=== PATIENT | male | born 1955 | race Caucasian/White ===

== ENCOUNTER 2017-08-02 22:02 | Emergency (ER) | payer MEDICAID ==
[~2017-08-02] VITALS: Ht 160 cm; Wt 68.0 kg
--- NOTE | 2017-08-02 22:02 | NUR ---
ARGENIS C/O RIGHT EYE DRESSNES SINCE THIS MORNING. NO SOB. NO PAIN. A/OX4 ABLE TO MAKE NEEDS KNONW. VSS NAD. WILL CONTINUE TO MONITOR FOR ANY CHANGES
--- NOTE | 2017-08-02 23:00 | NUR ---
EYE TEST DONE BY CLINICAL DATA ANALYST
--- NOTE | 2017-08-02 23:49 | NUR ---
AWAITING RESULTS ON RAPID INFLUENZA
[2017-08-03 00:35] VITALS: BP 140/80
== END 2017-08-03 00:35 | disposition home or self-care (01) ==
LOC: ER 22:13
DX: H11.31 Conjunctival hemorrhage, right eye (principal); R05 Cough; E11.9 Type 2 diabetes mellitus without complications; Z60.2 Problems related to living alone
CPT/HCPCS: 87804 ×2; 99284; A4606; Z7610; 87400

== ENCOUNTER 2021-09-28 03:10 | Emergency (ER) | payer MEDICARE, OTHER ==
[~2021-09-28] VITALS: Ht 160 cm; Wt 81.6 kg
[2021-09-28 04:09] VITALS: BP 130/78
[2021-09-28] MEDS ORDERED: FLUORESCEIN SODIUM OPHTH 1 EA STRIP ONE (04:16)
[2021-09-28] MEDS ORDERED: CIPR2.5D14 RIGHTEYE (04:21)
--- NOTE | 2021-09-28 04:27 | NUR ---
Patient discharged to home in stable condition. Written and verbal after care instructions given. Patient verbalizes understanding of instruction.
== END 2021-09-28 04:28 | disposition home or self-care (01) ==
LOC: ER 03:20
DX: S05.01XA Injury of conjunctiva and corneal abrasion without foreign body, right eye, initial encounter (principal); E11.9 Type 2 diabetes mellitus without complications; Z60.2 Problems related to living alone; Z79.899 Other long term (current) drug therapy; X58.XXXA Exposure to other specified factors, initial encounter; Y93.89 Activity, other specified; Y92.89 Other specified places as the place of occurrence of the external cause; Y99.8 Other external cause status

== ENCOUNTER → 2023-07-21 | Emergency (ER) | payer MEDICARE, OTHER ==
[~2023-07-21] VITALS: Ht 162.6 cm; Wt 68.0 kg
[~2023-07-21] MED LIST: AMOX500C2 PO; AMOXICILLIN TRIHYDRATE 250 MG CAPSULE ONE; CIPR2.5D14 RIGHTEYE; IBUP-1955 PO; IBUPROFEN 600 MG TABLET ONE
[2023-07-22 00:11] VITALS: BP 143/77; TEMP 97.8; O2SAT 100
[2023-07-22] MEDS: IBUPROFEN 600 MG TABLET PO ONE (00:33)
[2023-07-22] MEDS: AMOXICILLIN TRIHYDRATE 500 MG CAPSULE PO ONE (00:33)
== END | disposition home or self-care (01) ==
LOC: ER 23:44
DX: K08.89 Other specified disorders of teeth and supporting structures (principal); E11.9 Type 2 diabetes mellitus without complications; Z60.2 Problems related to living alone

== ENCOUNTER 2023-09-12 02:43 | Emergency (ER) | payer MEDICARE, OTHER ==
[~2023-09-12] VITALS: Ht 165.1 cm; Wt 68.0 kg
[2023-09-12] MEDS: FLUORESCEIN SODIUM OPHTH 1 EA STRIP OP ONE (02:30)
[~2023-09-12 02:43] MED LIST changes: -AMOXICILLIN TRIHYDRATE 250 MG CAPSULE ONE; -IBUPROFEN 600 MG TABLET ONE
[2023-09-12] MEDS: TETRAcaine 5 ML BOTTLE OP ONE (03:00)
[2023-09-12 03:03] VITALS: BP 130/70; TEMP 97.8; O2SAT 100
[2023-09-12] MEDS ORDERED: FLUORESCEIN SODIUM OPHTH 1 EA STRIP ONE (03:04)
[2023-09-12] MEDS ORDERED: CIPR2.5D14 EACHEYE (03:15)
[2023-09-12] MEDS ORDERED: AMOX875T2 PO (03:15)
== END 2023-09-12 03:48 | disposition home or self-care (01) ==
LOC: ER 02:46
DX: S05.02XA Injury of conjunctiva and corneal abrasion without foreign body, left eye, initial encounter (principal); S05.01XA Injury of conjunctiva and corneal abrasion without foreign body, right eye, initial encounter; K02.9 Dental caries, unspecified; Z60.2 Problems related to living alone; Z79.899 Other long term (current) drug therapy; X58.XXXA Exposure to other specified factors, initial encounter; Y93.89 Activity, other specified; Y92.89 Other specified places as the place of occurrence of the external cause; Y99.8 Other external cause status

== ENCOUNTER 2023-10-01 15:35 | Emergency (ER) | payer MEDICARE, OTHER ==
[~2023-10-01] VITALS: Ht 165.1 cm; Wt 68.5 kg
[~2023-10-01 15:35] MED LIST changes: +AMOX875T2 PO; +CIPR2.5D14 EACHEYE
[2023-10-01 15:57] VITALS: BP 126/69; TEMP 98.6; O2SAT 99
[2023-10-01] MEDS ORDERED: SULF1TAB48 PO (16:10)
[2023-10-01] MEDS ORDERED: CEPH500T PO (17:52)
== END 2023-10-01 16:35 | disposition home or self-care (01) ==
LOC: ER 15:42
DX: L03.811 Cellulitis of head [any part, except face] (principal); E11.9 Type 2 diabetes mellitus without complications

== ENCOUNTER 2023-11-30 23:28 | Emergency (ER) | payer MEDICARE, OTHER ==
[~2023-11-30] VITALS: Ht 162.6 cm; Wt 68.0 kg
[~2023-11-30 23:28] MED LIST changes: +CEPH500T PO
[2023-12-01] MEDS: GLUCAGON,HUMAN RECOMBINANT 1 MG/VIAL VIAL IM ONE (00:30)
[2023-12-01] MEDS ORDERED: GLUCAGON,HUMAN RECOMBINANT 1 MG/VIAL VIAL ONE (00:32)
[2023-12-01] MEDS ORDERED: WATER FOR INJECTION,STERILE 10 ML ONE (00:32)
[2023-12-01] MEDS ORDERED: CLIN75SO8 PO (01:51)
[2023-12-01] MEDS ORDERED: PANT20TA2 PO (01:51)
[2023-12-01 01:55] VITALS: BP 152/99; TEMP 98; O2SAT 99
== END 2023-12-01 01:56 | disposition home or self-care (01) ==
LOC: ER 23:55
DX: K20.90 Esophagitis, unspecified without bleeding (principal); E11.9 Type 2 diabetes mellitus without complications; Z60.2 Problems related to living alone
CPT/HCPCS: 99284; 70490; J1610

== ENCOUNTER 2023-12-26 11:56 | Emergency (ER) | payer MEDICARE, OTHER ==
[~2023-12-26] VITALS: Ht 162.6 cm; Wt 68.0 kg
[~2023-12-26 11:56] MED LIST changes: +CLIN75SO8 PO; +PANT20TA2 PO
[2023-12-26] MEDS ORDERED: BENZ-13 PO (15:08)
[2023-12-26] MEDS ORDERED: GUAI1TBM19 PO (15:08)
[2023-12-26 15:19] VITALS: BP 115/72; TEMP 98.6; O2SAT 96
== END 2023-12-26 15:19 | disposition home or self-care (01) ==
LOC: ER 13:45
DX: J06.9 Acute upper respiratory infection, unspecified (principal); R05.9 Cough, unspecified; E11.9 Type 2 diabetes mellitus without complications; Z79.1 Long term (current) use of non-steroidal anti-inflammatories (NSAID); Z79.899 Other long term (current) drug therapy; Z60.2 Problems related to living alone
CPT/HCPCS: 71045-TC

== ENCOUNTER 2024-01-01 01:48 | Emergency (ER) | payer MEDICARE, OTHER ==
[~2024-01-01] VITALS: Ht 162.6 cm; Wt 68.0 kg
[~2024-01-01 01:48] MED LIST changes: +BENZ-13 PO; +GUAI1TBM19 PO
[2024-01-01 03:25] VITALS: BP 122/74; TEMP 98.1
[2024-01-01] MEDS ORDERED: AMOX-430 PO (03:34)
[2024-01-01 03:48] VITALS: O2SAT 100
== END 2024-01-01 03:48 | disposition home or self-care (01) ==
LOC: ER 01:49
DX: H66.92 Otitis media, unspecified, left ear (principal); E11.9 Type 2 diabetes mellitus without complications; Z60.2 Problems related to living alone

== ENCOUNTER 2024-05-05 17:32 | Emergency (ER) | payer MEDICARE, OTHER ==
[~2024-05-05 17:32] MED LIST changes: +AMOX-430 PO
== END 2024-05-05 17:47 | disposition left against medical advice (07) ==
LOC: ER 17:38
DX: K08.89 Other specified disorders of teeth and supporting structures (principal); Z53.21 Procedure and treatment not carried out due to patient leaving prior to being seen by health care provider

== ENCOUNTER 2024-05-05 17:59 | Emergency (ER) | payer MEDICARE, OTHER ==
[~2024-05-05] VITALS: Ht 162.6 cm; Wt 71.7 kg
[2024-05-05 18:01] VITALS: BP 123/69; TEMP 98.4
[2024-05-05 18:47] VITALS: O2SAT 100
== END 2024-05-05 18:47 | disposition home or self-care (01) ==
LOC: ER 18:01
DX: K08.89 Other specified disorders of teeth and supporting structures (principal); E11.9 Type 2 diabetes mellitus without complications; Z79.1 Long term (current) use of non-steroidal anti-inflammatories (NSAID); Z79.899 Other long term (current) drug therapy; Z60.2 Problems related to living alone

== ENCOUNTER 2024-05-09 22:08 | Emergency (ER) | payer MEDICARE, OTHER ==
[~2024-05-09] VITALS: Ht 162.6 cm; Wt 68.0 kg
[2024-05-09] MEDS ORDERED: CIPR7.5D9 LEFT EAR (23:01)
[2024-05-09] MEDS ORDERED: KETOROLAC TROMETHAMINE INJ 30 MG/ML VIAL ONE (23:19)
[2024-05-09] MEDS: KETOROLAC TROMETHAMINE INJ 30 MG/ML VIAL IM ONE (23:23)
[2024-05-09 23:26] VITALS: BP 132/75; TEMP 98; O2SAT 98
== END 2024-05-09 23:27 | disposition home or self-care (01) ==
LOC: ER 22:16
DX: H60.92 Unspecified otitis externa, left ear (principal); H92.02 Otalgia, left ear; E11.9 Type 2 diabetes mellitus without complications; Z79.1 Long term (current) use of non-steroidal anti-inflammatories (NSAID); Z79.899 Other long term (current) drug therapy; Z60.2 Problems related to living alone
CPT/HCPCS: 99283; 96372; J1885

== ENCOUNTER 2024-05-13 00:57 | Emergency (ER) | payer MEDICARE, OTHER ==
[~2024-05-13] VITALS: Ht 162.6 cm; Wt 68.0 kg
[~2024-05-13 00:57] MED LIST changes: +CIPR7.5D9 LEFT EAR
[2024-05-13 02:16] VITALS: BP 139/76; TEMP 98; O2SAT 100
== END 2024-05-13 03:34 | disposition home or self-care (01) ==
LOC: ER 01:03
DX: H60.8X2 Other otitis externa, left ear (principal); H92.02 Otalgia, left ear; E11.9 Type 2 diabetes mellitus without complications; Z79.1 Long term (current) use of non-steroidal anti-inflammatories (NSAID); Z79.899 Other long term (current) drug therapy; Z60.2 Problems related to living alone

== ENCOUNTER 2024-05-15 14:22 | Emergency (ER) | payer MEDICARE, OTHER ==
[~2024-05-15] VITALS: Ht 162.6 cm; Wt 68.0 kg
[2024-05-15 14:52] VITALS: BP 160/89; TEMP 98.1; O2SAT 100
[2024-05-15] MEDS ORDERED: IBUPROFEN 400 MG TABLET ONE (15:22)
[2024-05-15] MEDS: IBUPROFEN 400 MG TABLET PO ONE (15:27)
== END 2024-05-15 17:27 | disposition home or self-care (01) ==
LOC: ER 14:24
DX: H92.02 Otalgia, left ear (principal); E11.9 Type 2 diabetes mellitus without complications; R51.9 Headache, unspecified; Z79.1 Long term (current) use of non-steroidal anti-inflammatories (NSAID); Z79.899 Other long term (current) drug therapy
CPT/HCPCS: 70450-TC

== ENCOUNTER 2024-08-17 22:42 | Emergency (ER) | payer MEDICARE, OTHER ==
[~2024-08-17] VITALS: Ht 162.6 cm; Wt 68.0 kg
[2024-08-18 00:32] VITALS: BP 155/93; TEMP 98.1; O2SAT 98
== END 2024-08-18 01:48 | disposition home or self-care (01) ==
LOC: ER 22:43
DX: K08.89 Other specified disorders of teeth and supporting structures (principal); Z79.1 Long term (current) use of non-steroidal anti-inflammatories (NSAID); Z79.899 Other long term (current) drug therapy; E11.9 Type 2 diabetes mellitus without complications; Z60.2 Problems related to living alone

== ENCOUNTER 2024-09-28 22:17 | Emergency (ER) | payer MEDICARE, OTHER ==
[~2024-09-28] VITALS: Ht 160 cm; Wt 52.2 kg
[2024-09-28 23:35] LABS: BASOPHILS % (AUTO) 0.4 % (0.0-2.0); EOSINOPHILS # (AUTO) 0.1 K/uL (0.0-0.7); EOSINOPHILS % (AUTO) 2.1 % (0.0-6.0); HEMATOCRIT 41 % (39-51); HEMOGLOBIN 14.3 g/dL (13.5-17.5); LYMPHOCYTES # (AUTO) 2.4 K/uL (0.8-4.8); MEAN CORPUSCULAR HEMOGLOBIN 33 PG (26.0-33.0); MEAN CORPUSCULAR HGB CONC 35 g/dl (31.0-36.0); MEAN CORPUSCULAR VOLUME 93 fL (80-96); MONOCYTES # (AUTO) 0.4 K/uL (0.1-1.30); MONOCYTES % (AUTO) 6.8 % (2.0-12.0); NEUTROPHILS # (AUTO) 2.6 K/uL (1.8-8.9); NEUTROPHILS % (AUTO) 47.7 % (43.0-81.0); PLATELET COUNT (AUTO) 140 K/uL (150-450); RED BLOOD CELL COUNT(AUTO) 4.37 MIL/uL (4.5-6.0); RED CELL DISTRIBUTION WIDTH 12.9 % (11.5-15.0); WHITE BLOOD COUNT (AUTO) 5.5 K/uL (4.3-11.0)
[2024-09-28 23:37] LABS: CALCIUM, SERUM 8.9 mg/dL (8.5-10.1); CREATININE 1.1 mg/dL (0.6-1.3)
[2024-09-28 23:49] LABS: ALBUMIN 3.4 g/dL (3.4-5.0); TOTAL PROTEIN, SERUM 6.7 g/dL (6.4-8.2)
[2024-09-29 00:13] LABS: APPEARANCE,URINE CLEAR (CLEAR); BILIRUBIN,URINE NEGATIVE (NEGATIVE); BLOOD, URINE NEGATIVE Ery/uL (NEGATIVE); COLOR,URINE YELLOW (YELLOW); KETONES,URINE 2+ mg/dL (NEGATIVE); LEUKOCYTE ESTERASE ,URINE NEGATIVE (NEGATIVE); NITRITE, URINE NEGATIVE (NEGATIVE); PH,URINE 5.5 (5.0-8.0); PROTEIN,URINE NEGATIVE (NEGATIVE); UGLUCOSE 2+ mg/dL (NEGATIVE); UROBILINOGEN,URINE 0.2 EU/dL (0.2)
[2024-09-29 00:23] LABS: ADD URINE CULTURE NO; BACTERIA,URINE Rare /HPF (None Seen); SQUAMOUS EPITHELIAL CELL,UR Few /HPF (None Seen); WBC,URINE 0-2 /HPF (0-3)
[2024-09-29 02:00] VITALS: BP 116/77; TEMP 98.3; O2SAT 99
== END 2024-09-29 02:01 | disposition home or self-care (01) ==
LOC: ER 22:23
DX: R00.2 Palpitations (principal); E11.9 Type 2 diabetes mellitus without complications; R42 Dizziness and giddiness; Z79.1 Long term (current) use of non-steroidal anti-inflammatories (NSAID); Z79.899 Other long term (current) drug therapy
CPT/HCPCS: 36415; 71045-TC; 80053-TC; 81001; 83880; 84484-TC; 85025-TC; 85378-TC